=== PATIENT | male | born 1990 | race Caucasian/White ===

== ENCOUNTER 2017-02-16 18:42 | Emergency (ER) | payer OTHER ==
[~2017-02-16] VITALS: Ht 198.1 cm; Wt 143.9 kg
[~2017-02-16 18:42] MED LIST: FLONASE16 G1 BOTH NARES; GINSENG100 M2 PO; MAGNESIUM100 MG PO; MOTRIN800 MG PO; MUCINEX D ER T1 EACH PO; NOHOMEMEDS
[2017-02-16] MEDS ORDERED: KEFLEX500 MG PO (20:52)
[2017-02-16 21:23] VITALS: BP 132/87
== END 2017-02-16 21:26 | disposition home or self-care (01) ==
LOC: EME 18:42
DX: L08.82 Omphalitis not of newborn (principal)
CPT/HCPCS: 99281; 99284

== ENCOUNTER 2018-01-19 21:56 | Emergency (ER) | payer OTHER ==
[~2018-01-19] VITALS: Ht 198.1 cm; Wt 148.7 kg
[~2018-01-19 21:56] MED LIST changes: +KEFLEX500 MG PO
[2018-01-19 22:27] LABS: HEMATOCRIT 44.5 % (38.0-50.0); HEMOGLOBIN 15.8 G/DL (12.5-16.6); MCHC 35.5 G/DL (30.0-36.0); MCV 90.1 FL (86-99); PLATELET COUNT 240 K/uL (156-360); RBC DIS.WIDTH-CV 11.9 % (11.8-14.6); RED BLOOD COUNT 4.94 M/uL (4.00-5.50)
[2018-01-19 22:41] LABS: CHLORIDE 104 mEq/L (99-109); POTASSIUM 3.9 mEq/L (3.7-5.4); SODIUM 141 mEq/L (136-147)
[2018-01-19 22:43] LABS: GLUCOSE 92 mg/dL (70-99)
[2018-01-19 22:47] LABS: CREATININE 0.9 mg/dL (0.6-1.3); GFR ESTIMATE (CALCULATED) > 59 mL/min/ (58.99-99999); TROP-I INTERPRETATION NEGATIVE; TROPONIN-I < 0.01 ng/mL (0.0-0.30)
[2018-01-19 22:48] LABS: UREA NITROGEN (BUN) 7 mg/dL (9-23)
[2018-01-19 23:40] LABS: ALBUMIN 4.4 g/dL (3.2-4.8)
[2018-01-19 23:43] LABS: TOTAL PROTEIN 7.4 g/dL (6.4-8.3)
[2018-01-19 23:45] LABS: TOTAL BILIRUBIN 1.1 mg/dL (0.0-1.0)
[2018-01-19 23:46] LABS: ALKALINE PHOSPHATASE 91 IU/L (3-129)
[2018-01-19 23:48] LABS: AST (GOT) 23 IU/L (2-34); DIRECT BILIRUBIN 0.4 mg/dL (0.0-0.3)
[2018-01-19 23:49] LABS: ALT (GPT) 32 IU/L (3-49)
[2018-01-20 01:55] LABS: HEMATOCRIT 41.6 % (38.0-50.0); HEMOGLOBIN 14.6 G/DL (12.5-16.6); MCH 31.9 PG (29.0-34.0); MCHC 35.1 G/DL (30.0-36.0); PLATELET COUNT 226 K/uL (156-360); RBC DIS.WIDTH-SD 39.8 % (39-53); RED BLOOD COUNT 4.57 M/uL (4.00-5.50); WHITE BLOOD COUNT 15.4 K/uL (4.1-10.2)
[2018-01-20 02:50] LABS: TROP-I INTERPRETATION NEGATIVE; TROPONIN-I < 0.01 ng/mL (0.0-0.30)
[2018-01-20 03:11] VITALS: BP 118/88
== END 2018-01-20 03:12 | disposition home or self-care (01) ==
LOC: EME 21:56
PROVIDERS: Physician Assistant
DX: R07.89 Other chest pain (principal); Z72.0 Tobacco use
CPT/HCPCS: 71046; 71275; 80048; 80076; 84484; 85027; 85379; 93005; 99281; 99285; J7030